=== PATIENT | female | born 1985 | race Caucasian/White ===

== ENCOUNTER 2016-07-13 12:07 | Emergency (ER) | payer MEDICARE ==
[2016-07-13 12:54] LABS: URINE BILIRUBIN NEGATIVE (NEGATIVE); URINE BLOOD NEGATIVE (NEGATIVE); URINE GLUCOSE (UA) NORMAL (NORMAL); URINE KETONE NEGATIVE (NEGATIVE); URINE LEUKOCYTE ESTERASE TRACE (NEGATIVE); URINE NITRATE NEGATIVE (NEGATIVE); URINE PROTEIN NEGATIVE (NEGATIVE)
[2016-07-13 13:15] LABS: URINE RBC 0-5 /[HPF] (0-2); URINE WBC 0-5 /[HPF] (0-5)
[2016-07-13 13:16] LABS: URINE BACTERIA TRACE (NONE SEEN)
[2016-07-13 13:43] LABS: BASO % 0.6 % (0.1-1.2); EOS # 0.4 10_X3_uL (0.0-0.4); EOS % 6.9 % (0.7-5.8); GRAN # 2.3 10_X3_uL (1.6-6.1); GRAN % 43.6 % (34.0-71.1); HEMATOCRIT 45.6 % (34-45); HEMOGLOBIN 15.5 g/dL (11.2-15.7); LYMPH # 2.1 10_X3_uL (1.2-3.7); MEAN CORPUSCULAR HEMOGLOBIN 32.7 pg (27.0-33.0); MEAN CORPUSCULAR VOLUME 96.2 fL (79-95); MEAN PLATELET VOLUME 10.4 fl (7.5-11.5); MONO # 0.5 10_X3_uL (0.2-0.9); MONO % 9.9 % (4.7-12.5); PLATELET COUNT 201 x10_3/uL (182-369); RED BLOOD COUNT 4.74 x10_6/uL (3.9-5.2); RED CELL DISTRIBUTION WIDTH 12.7 % (11.7-14.4); WHITE BLOOD COUNT 5.4 x10_3/uL (4.0-10.0)
[2016-07-13 13:54] LABS: AMYLASE 29 U/L (15.62-74.58); LIPASE 23 U/L (6.75-60.75)
== END 2016-07-13 14:02 | disposition left against medical advice (07) ==
LOC: ER 12:07
PROVIDERS: Internal Medicine
DX: K80.20 Calculus of gallbladder without cholecystitis without obstruction (principal); R10.13 Epigastric pain; R10.11 Right upper quadrant pain; G43.909 Migraine, unspecified, not intractable, without status migrainosus; R05 Cough; R09.82 Postnasal drip; F17.210 Nicotine dependence, cigarettes, uncomplicated; Z79.899 Other long term (current) drug therapy; Z88.0 Allergy status to penicillin
CPT/HCPCS: 36415; 76705; 81001; 81025; 82150; 83690; 85025; 99284-25

== ENCOUNTER 2016-08-10 22:08 | Emergency (ER) | payer MEDICARE | END 2016-08-11 00:38 | disposition home or self-care (01) | LOC: ER 22:08 | DX: S40.011A Contusion of right shoulder, initial encounter (principal); S10.93XA Contusion of unspecified part of neck, initial encounter; S50.11XA Contusion of right forearm, initial encounter; V86.99XA Unspecified occupant of other special all-terrain or other off-road motor vehicle injured in nontraffic accident, initial encounter; F17.210 Nicotine dependence, cigarettes, uncomplicated; Z88.0 Allergy status to penicillin; Z79.899 Other long term (current) drug therapy ==